=== PATIENT | male | born 2000 | race Caucasian/White ===

== ENCOUNTER 2019-05-25 15:42 | Emergency (ER) | payer MEDICAID ==
[~2019-05-25] VITALS: Ht 172.7 cm; Wt 54.9 kg
[2019-05-25 16:02] VITALS: Ht 172.7 cm; Wt 54.9 kg
[2019-05-25 17:40] VITALS: BP 120/71
== END 2019-05-25 17:40 | disposition home or self-care (01) ==
LOC: ED 15:42
DX: N34.2 Other urethritis (principal)
CPT/HCPCS: 87491; 87591